=== PATIENT | male | born 1965 | race Caucasian/White ===

== ENCOUNTER 2020-06-21 10:22 | Outpatient (REF) | payer BC, SELFPAY ==
--- NOTE | 2020-06-22 08:55 | MHC.AU.ANO ---
Adult Audiological Evaluation Date of Visit: 06/21/20 Deputy Prosecuting Attorney Used: Not Applicable Reason for Appointment: Audiologic evaluation due to fluctuating hearing difficulties. Tyrone reports he often needs repetition of speech and experiences tinnitus which increases after working despite consistently using employer provided foam hearing protection. He also notes he does not specifically have allergies, but does frequently wake in the morning with a runny nose which clears fairly quickly. Does patient feel they have a hearing loss?: Yes If Yes, Which Ear?: Both Ears Has hearing been tested previously?: Has had [employer]SHA required hearing screenings at work, but no diagnostic testing has been performed. Hearing Handicap Inventory: HHIE SCORE: 18 Based on HHIE score, patient has: Mild to moderate perceived hearing handicap Ear History: Bothersome Tinnitus/Ringing/Noises in Ears: Both Ears Ear used on the phone: Left Ear History of occupational noise exposure?: Yes Medical History: Medical History: Tobacco Use Medication List: Multi-vitamin and Glucosemine Otoscopy: Right Ear: Unremarkable Left Ear: Unremarkable Tympanometry: Tympanometry performed due to: To assess integrity of the middle ear system Right Ear: Normal Middle Ear System (Type A) Left Ear: Normal Middle Ear System (Type A) Otoacoustic Emissions Frequency Range Used: 1.6-8 kHz Right Ear Results: Present 1600 Hz, Reduced 6638-9710 Hz, Absent 3107-0108 Hz Analysis: Reduced/Absent emissions suggest cochlear dysfunction Left Ear Results: Present 1600 & 2000 Hz, Absent 9647-9997 Hz Analysis: Reduced/Absent emissions suggest cochlear dysfunction Hearing Evaluation: Transducer(s) Used: Insert Earphones Bone Conduction Method: Conventional Audiometry Stimuli Used: Pure Tones Right Ear: Description of Hearing: Normal hearing thresholds 250-2000 Hz sloping to a mild high frequency sensorineural hearing loss Left Ear: Description of Hearing: Normal hearing thresholds 250-2000 Hz sloping to a moderate high frequency sensorineural hearing loss Speech Recognition Threshold (SRT): Method Used: Monitored Live Voice Stimuli Used: Spondee Words Right Ear: 5 dB HL Left Ear: 10 dB HL Word Discrimination: Method: Recorded Lists Word Lists Used: NU-6 Right Ear: 100% at 55 dB HL Left Ear: 96% at 60 dB HL QuickSIN: Binaural Quick SIN Test: 4 dB SNR Loss suggesting Tyrone experiences a mild degree of difficulty understanding speech with increasing levels of background noise. Interpretation of Results: The mild to moderate high frequency hearing loss with reduced and absent otoacoustic emissions indicates decreased cochlear function for both ears. The high frequency thresholds noted are at a level where emissions are often noted. This may relate to Tyrone noise exposure which can cause temporary and/or permanent cochlear dysfunction. This is likely the reason why he notes the tinnitus is louder after he leaves work and he feels the hearing loss fluctuates. Discussed that foam hearing protection tends to be less effective at blocking out dangerous sounds because the fit of the devices may not be consistent. Recommendations: - Over the ear muffs hearing protection is recommended, ideally with speech enhancement features so Tyrone can understand when people speak to him and he can hear warning signals. - Discussed and provided a handout regarding communication strategies to use to improve speech understanding as much as possible. - Audiological re-evaluation in one year. Will send a reminder card. Diagnosis: Primary Diagnosis: H90.3 Bilateral Sensorineural Hearing Loss Secondary Diagnosis: H93.13 Tinnitus, Bilateral Services Performed: Comprehensive Audiological Evaluation (CPT 68960) Diagnostic Otoacoustic Emissions (CPT 39559, 26+TC) Tympanometry (CPT 02484) Signature: Provider: Randall Reyes, CCC-A
== END 2020-06-21 10:23 | disposition home or self-care (01) ==
LOC: HO.SH 10:22
PROVIDERS: Visit Provider Internal Medicine
DX: H90.3 Sensorineural hearing loss, bilateral (principal); H93.13 Tinnitus, bilateral
CPT/HCPCS: 92557; 92567; 92588